=== PATIENT | female | born 1995 ===

== ENCOUNTER 2016-09-16 16:54 | Emergency (ER) | payer BC, MEDICAID ==
[2016-09-16 17:11] VITALS: BP 114/65
--- NOTE | 2016-09-16 17:27 | UC ---
Eye Complaint HPI - HPI Summary HPI Summary: 20 YEAR OLD FEMALE PRESENTS WITH COMPLAINS OF RED LEFT EYE WITH DISCHARGE - History of Current Complaint Chief Complaint: UCEye Stated Complaint: LEFT EYE COMPLAINT Time Seen by Provider: 09/16/16 17:21 Hx Last Menstrual Period: 09/16/16 - Allergies/Home Medications Allergies/Adverse Reactions: Allergies Allergy/AdvReac Type Severity Reaction Status Date / Time No Known Allergies Allergy Verified 09/16/16 17:05 PMH/Surg Hx/FS Hx/Imm Hx - Surgical History Surgical History: None - Social History Alcohol Use: None Substance Use Type: None Smoking Status (MU): Never Smoked Tobacco Review of Systems Constitutional: Negative Skin: Negative Eyes: Drainage, Eye Redness ENT: Negative Respiratory: Negative Cardiovascular: Negative Gastrointestinal: Negative Genitourinary: Negative Motor: Negative Neurovascular: Negative Musculoskeletal: Negative Neurological: Negative Psychological: Negative All Other Systems Reviewed And Are Negative: Yes Physical Exam Triage Information Reviewed: Yes Vital Signs: Initial Vital Signs Temp 37.0 C 09/16/16 17:05 Pulse 68 09/16/16 17:05 Resp 16 09/16/16 17:05 BP 114/65 09/16/16 17:05 Pulse Ox 100 09/16/16 17:05 Eyes: Positive: Conjunctiva Inflamed ENT Exam: Normal Dental Exam: Normal Neck exam: Normal Neck: Positive: 1 Respiratory Exam: Normal Cardiovascular Exam: Normal Abdominal Exam: Normal Musculoskeletal Exam: Normal Neurological Exam: Normal Psychological Exam: Normal Skin Exam: Normal Eye Complaint Course/Dx - Differential Dx/Diagnosis Provider Diagnoses: CONJUNCTIVITIS LEFT EYE Discharge - Discharge Plan Condition: Stable Disposition: HOME Prescriptions: Polymyx/Trimethoprim OPTH* [Polytrim OPHTH*] 1 drop LEFT EYE Q6H #1 btl Patient Education Materials: Conjunctivitis (ED) Forms: *Work Release Referrals: Lizabeth GALDAMEZ,Heather [Medical Doctor] -
== END 2016-09-16 17:39 | disposition home or self-care (01) ==
LOC: UCCORT 16:54
DX: H10.9 Unspecified conjunctivitis (principal)
CPT/HCPCS: 99202; G0463

== ENCOUNTER 2017-07-19 10:53 | Emergency (ER) | payer BC, MEDICAID ==
[2017-07-19 11:22] VITALS: BP 123/79
--- NOTE | 2017-07-19 11:26 | UC ---
Throat Pain/Nasal [place] HPI - HPI Summary HPI Summary: 21 yo WF presents with sinus pain/pressure/congestion and sore throat for the last 4 days. She has been taking tylenol and mucinex with no relief. Denies fever, chills, cough, SOB, chest pain. - History of Current Complaint Chief Complaint: UCGeneralIllness Stated Complaint: COLD SYMPTOMS Time Seen by Provider: 07/19/17 11:26 Hx Obtained From: Patient Hx Last Menstrual Period: 09/16/16 Onset/Duration: Gradual Onset Severity: Moderate Pain Intensity: 6 Pain Scale Used: 0-10 Numeric - Allergies/Home Medications Allergies/Adverse Reactions: Allergies Allergy/AdvReac Type Severity Reaction Status Date / Time No Known Allergies Allergy Verified 07/19/17 11:17 Home Medications: Home Medications Acetaminophen TAB* [Tylenol TAB*] 6 tab PO Q4H PRN 07/19/17 [History Confirmed 07/19/17] Dm/PE/Acetaminophen/Doxylamine [Daytime-Nighttime Cold-Flu] 1 each PO BID [History Confirmed 07/19/17] guaiFENesin [Mucinex] 600 mg PO DAILY 07/19/17 [History Confirmed 07/19/17] PMH/Surg Hx/FS Hx/Imm Hx - Additional Past Medical History Additional PMH: None Previously Healthy: Yes - Surgical History Surgical History: None - Family History Known Family History: Positive: None - Social History Occupation: Employed Full-time Lives: With Family Alcohol Use: None Substance Use Type: None Smoking Status (MU): Never Smoked Tobacco Review of Systems Constitutional: Negative Skin: Negative Eyes: Negative ENT: Sore Throat, Nasal Discharge, Sinus Congestion, Sinus Pain/Tenderness Respiratory: Negative Cardiovascular: Negative Gastrointestinal: Negative Neurovascular: Negative Neurological: Negative Psychological: Negative All Other Systems Reviewed And Are Negative: Yes Physical Exam - Summary Physical Exam Summary: GENERAL: NAD. WDWN. No pain distress. SKIN: No rashes, sores, lesions, or open wounds. HEENT: Head: AT/NC Eyes: Conjunctiva clear without inflammation or discharge. Ears: Hearing grossly normal. TMs intact, no bulging, erythema, or edema. Nose: Nasal mucosa pink and moist without discharge. TTP maxillary and frontal sinus. Throat: Posterior oropharynx moderate erythema and 2+ tonsillar enlargement. No exudates. Uvula midline. No hoarse voice or muffled voice. NECK: Supple. Nontender. No lymphadenopathy. CHEST: CTAB. No r/r/w. No accessory muscle use. Breathing comfortably and in no distress. CV: RRR. Without m/r/g. Pulses intact. Brisk cap refill. NEURO: Alert. CN II-XII grossly intact. PSYCH: Age appropriate behavior. Triage Information Reviewed: Yes Vital Signs: Initial Vital Signs Temp 99.4 F 07/19/17 11:15 Pulse 85 07/19/17 11:15 Resp 17 07/19/17 11:15 BP 123/79 07/19/17 11:15 Pulse Ox 99 07/19/17 11:15 Throat Pain/Nasal Course/Dx - Course Course Of Treatment: Pharyngitis and sinusitis. Continue with tylenol and mucinex - if symptoms persist another 3-4 days, may start anbx. - Differential Dx/Diagnosis Provider Diagnoses: Sinusitis. Pharyngitis Discharge - Sign-Out/Discharge Documenting (check all that apply): Discharge/Admit/Transfer - Discharge Plan Condition: Stable Disposition: HOME Prescriptions: Amoxicillin PO (*) [Amoxicillin 500 MG CAP*] 500 mg PO Q12H #20 cap Patient Education Materials: Pharyngitis (ED), Sinusitis (ED) Forms: *Work Release Referrals: Irineo Payne MD [Primary Care Provider] - Additional Instructions: If you develop a fever, shortness of breath, chest pain, new or worsening symptoms - please call your PCP or go to the ED. Your blood pressure was high at todays visit. Please see your primary provider within 4 weeks for recheck and re-evaluation. - Billing Disposition and Condition Condition: STABLE Disposition: HOME
== END 2017-07-19 11:36 | disposition home or self-care (01) ==
LOC: UCCORT 10:53
DX: J32.9 Chronic sinusitis, unspecified (principal); J02.9 Acute pharyngitis, unspecified
CPT/HCPCS: 99212; G0463